=== PATIENT | male | born 1985 | race Caucasian/White ===

== ENCOUNTER 2020-05-04 01:07 | Emergency (ER) | payer OTHER ==
[2020-05-04 01:21] VITALS: RESP 18
[2020-05-04] MEDS ORDERED: KETOROLAC 15 MG/ML 1 ML VIAL IM STA (01:25)
[2020-05-04] MEDS ORDERED: HYDROcodone/APAP 5-325MG 1 EACH TAB PO STA (01:25)
--- NOTE | 2020-05-04 01:45 | ED ---
Fall HPI - General Chief Complaint: Fall Stated Complaint: Left leg injury Time Seen by Provider: 05/04/20 01:11 Source: patient Mode of arrival: ambulatory - History of Present Illness Initial Comments: 34-year-old male patient presents to the emergency department today for evaluation of left ankle injury. Patient states that he was on a steep hill and going down when he hit a rock with his foot causing him to twist the ankle. Patient states that he had onset of immediate pain. He was able to get off the hill but was unable to ambulate after that. Patient states the area has become quite swollen. He does admit to drinking a couple beers this evening. He denies falling, hitting his head, losing consciousness. He denies any other injuries. He has not taken any medication for his pain. Patient does admits to previous surgery to this ankle, states he had a ligament or tendon repair done near the Achilles region. Patient denies any headache, neck pain, back pain, chest pain, shortness of breath, dizziness, weakness, abdominal pain, nausea, vomiting, or difficulties with bowel movements or urination. - Related Data Previous Rx's Medication Instructions Recorded Hydrocodone/Acetaminophen [[place] 1 tab PO Q6HR PRN #12 tab 05/04/20 5-325] Ibuprofen [Motrin] 600 mg PO Q8HR PRN #30 tab 05/04/20 Allergies Allergy/AdvReac Type Severity Reaction Status Date / Time sulfadoxine Allergy Rash/Hives Verified 05/04/20 01:25 Review of Systems ROS Statement: Those systems with pertinent positive or pertinent negative responses have been documented in the HPI. ROS Other: All systems not noted in ROS Statement are negative. Past Medical History Additional Past Medical History / Comment(s): Lacerated liver Smoking Status: Current every day smoker Past Alcohol Use History: Occasional Past Drug Use History: Marijuana General Exam General appearance: alert, in no apparent distress, other (This is a well- developed, well-nourished adult male patient in no acute distress. Vital signs upon presentation are temperature 98.7F, pulse 125, respirations 18, blood pressure 148/101, pulse ox 97% on room air.) Neck exam: Present: normal inspection, full ROM, other (Nontender, no step-off, no deformity to firm midline palpation of the posterior cervical spine. Full range of motion without pain or limitation.). Absent: tenderness, meningismus, lymphadenopathy Respiratory exam: Present: normal lung sounds bilaterally. Absent: respiratory distress, wheezes, rales, rhonchi, stridor Cardiovascular Exam: Present: regular rate, normal rhythm, normal heart sounds. Absent: systolic murmur, diastolic murmur, rubs, gallop, clicks GI/Abdominal exam: Present: soft, normal bowel sounds. Absent: distended, tenderness, guarding, rebound, rigid Extremities exam: Present: tenderness (Surrounding the entirety of the left ankle), normal capillary refill, other (There is soft tissue swelling and ecchymosis surrounding the left ankle. There is possible deformity noted to the medial distal fibula region. Skin is otherwise pink, warm, dry. Cap refills less than 3 seconds. Pedal and posttibial pulses are 2+ and equal bilaterally. ). Absent: normal inspection, full ROM (Decreased range of motion due to increased pain with movement), pedal edema, joint swelling, calf tenderness Back exam: Present: normal inspection, other (Nontender, no step-off, no deformity to firm midline palpation of the thoracic and lumbar vertebrae. Full range of motion without pain or limitation.). Absent: vertebral tenderness Neurological exam: Present: alert, oriented X3, CN II-XII intact Psychiatric exam: Present: normal affect, normal mood Skin exam: Present: warm, dry, intact, normal color. Absent: rash Course Vital Signs 05/04/20 01:12 Temperature 98.7 F Pulse Rate 125 H Respiratory 18 Rate Blood Pressure 148/101 O2 Sat by Pulse 97 Oximetry Procedures - Orthopedic Splinting/Casting Injury #1 Side: left Lower Extremity Injury Location: short leg Lower Extremity Immobilizer: stirrup splint, Hector wrap Additional Comments: Leg padded with web roll. Neurovascular status intact after splint application. Skin to the foot is pink, warm, dry. Cap refills less than 3 seconds. Patient denies numbness or tingling. Medical Decision Making - Medical Decision Making 34-year-old male patient presents to the emergency department today for evaluation of left ankle injury. Physical examination did reveal soft tissue swelling and ecchymosis over the left ankle. X-rays were obtained and did reveal distal fibula fracture. Patient was placed in a stirrup splint. He is instructed to leave splint in place and to maintain nonweightbearing status. He'll be discharged to follow-up with orthopedics for further evaluation 1-2 days. He is educated regarding rest, ice, elevation. Patient and verbalized understanding and agree with this plan. - Radiology Data Radiology results: report reviewed, image reviewed 3 views of the left ankle are obtained. Report was reviewed in its entirety. Impression by Dr. Vilchis shows acute fracture of the distal fibula. Soft tissue swelling. No significant displacement. Disposition Clinical Impression: Left fibular fracture Disposition: HOME SELF-CARE Condition: Good Instructions (If sedation given, give patient instructions): Leg Fracture (ED), Splint Care (ED) Additional Instructions: Keep splint clean and dry. Apply ice to the leg 4-5 times daily. Rest and elevate the leg. Do not bear weight on the leg until cleared by orthopedics. Take medications as directed for pain control. Follow-up with instructional services specialist for further evaluation as soon as possible. Follow up with her primary care physician for recheck in 1-2 days. Return to the emergency department immediately for any new, worsening, or concerning symptoms. Prescriptions: Ibuprofen [Motrin] 600 mg PO Q8HR PRN #30 tab PRN Reason: Pain Hydrocodone/Acetaminophen [[place] 5-325] 1 tab PO Q6HR PRN #12 tab PRN Reason: Pain Is patient prescribed a controlled substance at d/c from ED?: No Referrals: Parth Gilmore MD [Primary Care Provider] - 1-2 days Alison Baca DO [Doctor of Osteopathic Medicine] - 1-2 days Time of Disposition: 02:31
--- NOTE | 2020-05-04 02:09 | XR ---
EXAMINATION TYPE: XR ankle complete LT DATE OF EXAM: 05/04/2020 COMPARISON: NONE HISTORY: Fall. Injury. Pain. TECHNIQUE: 3 views FINDINGS: There is nondisplaced oblique fracture of the distal shaft of the fibula. There is separati on up to 4 mm of the fragments. Ankle mortise is anatomic. There is soft tissue swelling around the a nkle joint. There is small Achilles calcaneal spur. IMPRESSION: Acute fracture of the distal fibula. Soft tissue swelling. No significant displacement.
[2020-05-04] MEDS ORDERED: MORPHINE SULFATE 2 MG/ML SYRINGE IM STA (02:15)
[2020-05-04] MEDS ORDERED: ACET/COD 300 MG/30 MG STARTER PACK 6 TAB BTL PO STA (02:31)
[2020-05-04 02:44] VITALS: BP 136/101; PULSE 114; TEMP 98.1
== END 2020-05-04 02:42 | disposition home or self-care (01) ==
LOC: EC 01:07
DX: S82.832A Other fracture of upper and lower end of left fibula, initial encounter for closed fracture (principal); F17.200 Nicotine dependence, unspecified, uncomplicated; Z88.2 Allergy status to sulfonamides; W01.0XXA Fall on same level from slipping, tripping and stumbling without subsequent striking against object, initial encounter; Y93.02 Activity, running; Y92.89 Other specified places as the place of occurrence of the external cause
CPT/HCPCS: 73610; 29515; 96372 ×2; 99284; J2270; J1885

== ENCOUNTER 2020-05-05 12:06 | Emergency (ER) | payer OTHER ==
[2020-05-05 12:26] VITALS: RESP 18
[2020-05-05] MEDS ORDERED: ONDANSETRON ODT 4 MG TAB PO STA (13:15)
--- NOTE | 2020-05-05 13:37 | ED ---
Recheck HPI - General Chief Complaint: Recheck/Abnormal Lab/Rx Stated Complaint: foot injury Time Seen by Provider: 05/05/20 13:04 Source: patient Mode of arrival: wheelchair Limitations: no limitations - History of Present Illness Initial Comments: Patient is a 34-year-old male presenting to emergency Department for recheck of his left ankle injury from yesterday. Patient was diagnosed with a left distal fibula fracture yesterday the ER after falling. Patient was placed in a splint. Patient states yesterday after he was discharged from the ER he was trying to hop into his house when he tripped and ended up putting a lot of his weight onto that left foot. Patient states after that he was able to get himself into the house. He has been doing some elevation and icing to his lower leg but states that he felt like his toes were colder than his right foot, but he also did not have a sock on his left foot. Patient states he is also feeling nauseous. He feels like the splint might be too tight. He is not having a significant increase in pain. He denies any other injuries from the second fall. He has no further complaints at this time. - Related Data Previous Rx's Medication Instructions Recorded Hydrocodone/Acetaminophen [[place] 1 tab PO Q6HR PRN #12 tab 05/04/20 5-325] Ibuprofen [Motrin] 600 mg PO Q8HR PRN #30 tab 05/04/20 Allergies Allergy/AdvReac Type Severity Reaction Status Date / Time sulfadoxine Allergy Rash/Hives Verified 05/05/20 12:26 Review of Systems ROS Statement: Those systems with pertinent positive or pertinent negative responses have been documented in the HPI. ROS Other: All systems not noted in ROS Statement are negative. Past Medical History Past Medical History: No Reported History Additional Past Medical History / Comment(s): Lacerated liver History of Any Multi-Drug Resistant Organisms: None Reported Past Surgical History: Hernia Repair Past Psychological History: No Psychological Hx Reported Smoking Status: Current every day smoker Past Alcohol Use History: Occasional Past Drug Use History: Marijuana General Exam - General Exam Comments Initial Comments: GENERAL: Patient is well-developed and well-nourished. Patient is nontoxic and in no acute distress. HEAD: Atraumatic, normocephalic. EYES: Pupils equal round and reactive to light, extraocular movements intact, sclera anicteric, conjunctiva are normal. Eyelids were unremarkable. ENT: TMs normal, nares patent, oropharynx clear without exudates. Moist mucous membranes. NECK: Normal range of motion, supple without lymphadenopathy or JVD. LUNGS: Unlabored respirations. Breath sounds clear to auscultation bilaterally and equal. No wheezes rales or rhonchi. HEART: Regular rate and rhythm without murmurs, rubs or gallops. ABDOMEN: Soft, nontender, normoactive bowel sounds. No guarding, no rebound. No masses appreciated. : Deferred MUSCULOSKELETAL: Patient's left lower leg is in a stirrup splint, he is neurovascular intact. He is able to wiggle his toes. His pain is not out of proportion. Patient does have mild swelling of his left lower ankle and left foot. There is no discoloration. No clubbing or cyanosis. NEUROLOGICAL: Patient is alert and oriented x 3. Motor and sensory are also intact. Symmet rical smile. Normal speech. PSYCH: Normal mood, normal affect. SKIN: Warm, Dry, normal turgor, no rashes or lesions noted. Limitations: no limitations Course Vital Signs 05/05/20 12:23 Temperature 98.2 F Pulse Rate 98 Respiratory 18 Rate Blood Pressure 137/82 O2 Sat by Pulse 100 Oximetry Medical Decision Making - Medical Decision Making Patient is a 34-year-old male here for recheck of his left distal fibular fracture from yesterday. He did end up tripping and putting his weight on after he was discharged here. He is also complaining of nausea. Repeat x-rays today show no significant changes in the fracture. Patient's splint was loosened, and rewrapped in place. He states his pain has remained mild, similar to yesterday. His pain is not a proportion, his pulses are normal, his compartments are soft and compressible. I do not have concern for compartment syndrome at this time. Patient is stable for discharge. He states he does have a referral to orthopedics and we'll check in with next week. He'll continue to alternating Tylenol Motrin for discomfort. He is in agreement with this plan of care. He does have crutches with him at this time. Return parameters were discussed with the patient he verbalizes understanding. Case discussed with Dr. Keane. Disposition Clinical Impression: Left fibular fracture, Nausea Disposition: HOME SELF-CARE Condition: Stable Instructions (If sedation given, give patient instructions): Ankle Fracture (ED) Additional Instructions: Please return to the Emergency Department if symptoms worsen or any other concerns. Continue with icing the left ankle, elevation, alternate between Tylenol and Motrin for discomfort. Do not apply weight on this left foot, use crutches. Follow-up with orthopedics as discussed. Is patient prescribed a controlled substance at d/c from ED?: No Referrals: Parth Gilmore MD [Primary Care Provider] - 1-2 days
--- NOTE | 2020-05-05 14:08 | XR ---
EXAMINATION TYPE: XR ankle complete LT DATE OF EXAM: 05/05/2020 CLINICAL HISTORY: Repeat fall, fibular fracture TECHNIQUE: Frontal, lateral and oblique images of the left ankle are obtained. COMPARISON: 05/04/2020 ankle radiograph FINDINGS: Overlying casting material obscures fine osseous detail. There is a redemonstrated distal fibular diaphysis mildly displaced spiral fracture with no significant angulation. No evidence of new fracture or dislocation. IMPRESSION: Unchanged appearance of mildly displaced oblique fracture of the distal fibular diaphysis versus 05/04/2020.
[2020-05-05 14:58] VITALS: BP 132/91; PULSE 88; TEMP 97.7
== END 2020-05-05 14:58 | disposition home or self-care (01) ==
LOC: EC 12:06
DX: S82.442D Displaced spiral fracture of shaft of left fibula, subsequent encounter for closed fracture with routine healing (principal); R11.0 Nausea; F17.200 Nicotine dependence, unspecified, uncomplicated; Z88.2 Allergy status to sulfonamides; X50.0XXD Overexertion from strenuous movement or load, subsequent encounter
CPT/HCPCS: 99283

== ENCOUNTER → 2020-05-07 | Outpatient (CLI) | payer OTHER ==
[2020-05-07 17:30] LABS: HCT 45.5 % (39.0-53.0); HGB 14.7 gm/dL (13.0-17.5); MCH 31.5 pg (25.0-35.0); MCHC 32.4 g/dL (31.0-37.0); MCV 97.3 fL (80.0-100.0); Mean Platelet Volume 8.3; Platelet Count 274 k/uL (150-450); RBC 4.67 m/uL (4.30-5.90); RDW 13.2 % (11.5-15.5); WBC 9.8 k/uL (3.8-10.6)
[2020-05-07 17:52] LABS: Appearance,Urine Clear (Clear); Bilirubin,Urine Negative (Negative); Blood,Urine Negative (Negative); Color,Urine Yellow; Glucose,Urine (UA) Negative (Negative); Ketones,Urine Negative (Negative); Leukocyte Esterase,Urine Negative (Negative); Nitrite,Urine Negative (Negative); PH, Urine 6.5 (5.0-8.0); Protein,Urine Negative (Negative); Specific Gravity,Urine 1.022 (1.001-1.035)
[2020-05-08 01:54] LABS: African American GFR (CKD) 128.7 (60.0-200.0); Albumin 4.3 g/dL (3.80-4.90); Albumin/Globulin Ratio 2.05 (1.60-3.17); Anion Gap 7.4 mmol/L (4.00-12.00); BUN/Creat Ratio 11.11 Ratio (12.00-20.00); Calcium 9.4 mg/dL (8.7-10.3); Carbon Dioxide 28.6 mmol/L (21.6-31.8); Globulin 2.1 g/dL (1.6-3.3); Potassium 4.2 mmol/L (3.5-5.5); Total Bilirubin 0.4 mg/dL (0.3-1.2); Total Protein 6.4 g/dL (6.2-8.2)
[2020-05-08 05:56] LABS: INR <0.90 (0.90-1.11); Partial Thromboplastin Time 26.3 sec (24.7-29.9); Prothrombin Time <9.9 sec (9.9-11.9)
--- NOTE | 2020-05-08 08:25 | XR ---
EXAMINATION TYPE: XR chest 2V DATE OF EXAM: 05/07/2020 COMPARISON: NONE TECHNIQUE: PA and lateral views submitted. HISTORY: Presurgical FINDINGS: There is a subsegmental density at the right lung base. Mild hyperinflation. No overt failure. Right- sided pleural effusion or thickening noted. No overt failure. IMPRESSION: 1. Blunting of the right costophrenic angle with area of subsegmental consolidation at the right lung base. Recommend CT of the chest. Findings could represent an area of consolidation was dural thicken ing or small effusion. Nodularity not excluded.
== END | disposition home or self-care (01) ==
LOC: LABMAIN 16:50
PROVIDERS: ATTEND Orthopaedic Surgery Orthopaedic Surgery of the Spine
DX: Z01.818 Encounter for other preprocedural examination (principal); S82.892A Other fracture of left lower leg, initial encounter for closed fracture; R91.8 Other nonspecific abnormal finding of lung field
CPT/HCPCS: 36415; 71046; 80053; 81003; 85027; 85610; 85730; 93005

== ENCOUNTER 2020-05-08 09:38 | Day surgery (SDC) | payer SELFPAY ==
[~2020-05-08 09:38] MED LIST: ceFAZolin 1,000 MG in SODIUM CHLORIDE 0.9% IRRIGATIO 1,000 ML IRRIGATION ONE
[2020-05-08] MEDS ORDERED: ONDANSETRON 4 MG/2 ML VIAL ONE (10:23)
[2020-05-08] MEDS ORDERED: LACTATED RINGERS 1,000 ML IV ONE (10:28)
[2020-05-08] MEDS ORDERED: LIDOCAINE 1% (10MG/ML) FOR IV START INTRADERMA ONE (10:29)
[2020-05-08] MEDS ORDERED: fentaNYL (PF) 50 MCG/ML 2 ML AMP IV ONE (10:32)
[2020-05-08] MEDS ORDERED: MIDAZOLAM 2 MG/2 ML VIAL IV ONE (10:32)
[2020-05-08] MEDS ORDERED: ONDANSETRON 4 MG/2 ML VIAL IVP ONE (10:42)
[2020-05-08] MEDS ORDERED: DEXAMETHASONE SOD PHOSPHATE 10 MG/ML 1 ML VIAL IV ONE (11:05)
--- NOTE | 2020-05-08 11:11 | P.ANPRN ---
Procedure Note - Anesthesia - Nerve Block Performed Left Adductor Canal Single Time Out Performed: Yes Date of Procedure: 05/08/20 Procedure Start Time: 10:32 Procedure Stop Time: 10:36 Location of Patient: PreOp Indication: Acute Post-Operative Pain, Requested by Surgeon Sedation Type: Sedate with meaningful contact maintained Preparation: Sterile Prep Position: Supine Needle Types: Pajunk Needle Gauge: 20 Ultrasound used to visualize needle placement: Yes Ultrasound used to observe medication spread: Yes Injectate: Other (see comment) (lidocaine 1% with epi 1/100 5 ml , decadron 5 mg) Blood Aspirated: No Pain Paresthesia on Injection Noted: No Resistance on Injection: Normal Image Stored and Saved: Yes Events: Uneventful and Well Tolerated
--- NOTE | 2020-05-08 11:13 | P.ANPRN ---
Procedure Note - Anesthesia - Nerve Block Performed Left Popliteal Single Time Out Performed: Yes Date of Procedure: 05/08/20 Procedure Start Time: 10:36 Procedure Stop Time: 10:40 Location of Patient: PreOp Indication: Acute Post-Operative Pain, Requested by Surgeon Sedation Type: Sedate with meaningful contact maintained Preparation: Sterile Prep Position: Supine Needle Types: Pajunk Needle Gauge: 20 Ultrasound used to visualize needle placement: Yes Ultrasound used to observe medication spread: Yes Injectate: Other (see comment) (lidocaine 1% with epi 1/[id number] 15 ml, decadron 5 mg) Blood Aspirated: No Pain Paresthesia on Injection Noted: No Resistance on Injection: Normal Image Stored and Saved: Yes Events: Uneventful and Well Tolerated
[2020-05-08] MEDS ORDERED: LIDOCAINE 1% INJ 10MG/ML (20 ML MDV) ONE (11:22)
[2020-05-08] MEDS ORDERED: PROPOFOL 10 MG/ML 20 ML VIAL IV ONE (11:22)
[2020-05-08] MEDS ORDERED: fentaNYL (PF) 50 MCG/ML 2 ML AMP ONE (11:22)
[2020-05-08] MEDS ORDERED: LIDOCAINE 2%-EPI 1:100,000 20 ML VIAL ONE (11:22)
[2020-05-08] MEDS ORDERED: DEXAMETHASONE SOD PHOSPHATE 4 MG/ML 1 ML VIAL ONE (11:22)
[2020-05-08] MEDS ORDERED: ROPIVACAINE 5 MG/ML 30 ML VIAL ONE (11:22)
[2020-05-08] MEDS ORDERED: MIDAZOLAM 2 MG/2 ML VIAL ONE (11:22)
[2020-05-08] MEDS ORDERED: BENZOCAINE/MENTHOL LOZENG 1 EACH LOZENGE MUCOUS MEM PRN (12:37)
[2020-05-08] MEDS ORDERED: HYDROmorphone 0.5 MG/0.5 ML SYRINGE IVP PRN (12:37)
[2020-05-08] MEDS ORDERED: HYDROmorphone 1 MG/ML 1 ML SYRINGE IVP PRN (12:37)
[2020-05-08] MEDS ORDERED: HYDROcodone/APAP 5-325MG 1 EACH TAB PO PRN ×2 (12:38)
[2020-05-08] MEDS ORDERED: ONDANSETRON 4 MG/2 ML VIAL IVP PRN (12:38)
[2020-05-08] MEDS ORDERED: SODIUM CHLORIDE 0.9% 1,000 ML IV SCH (12:45)
--- NOTE | 2020-05-08 12:48 | XR ---
EXAMINATION TYPE: XR ankle limited LT DATE OF EXAM: 05/08/2020 COMPARISON: NONE HISTORY: Postop TECHNIQUE: 2 intraoperative views submitted FINDINGS: Postsurgical changes appear to be in near-anatomic alignment. IMPRESSION: Postoperative change
--- NOTE | 2020-05-08 12:49 | FL ---
EXAMINATION TYPE: FL guidance operating room DATE OF EXAM: 05/08/2020 HISTORY: Fluoroscopy time 12 seconds of fluoroscopy provided. IMPRESSION: 1. Fluoroscopy time.
[2020-05-08 13:07] VITALS: TEMP 97.8
[2020-05-08 13:17] VITALS: RESP 16
--- NOTE | 2020-05-08 13:23 | P.OP ---
Date of Procedure: 05/08/20 Preoperative Diagnosis: Left distal fibula fracture, acute Traumatic status post fall Postoperative Diagnosis: Same plus findings of syndesmosis disruption at the distal fibular tibial joint, acute Traumatic status post fall Anesthesia: MAC Pathology: none sent Condition: stable Disposition: PACU Description of Procedure: BRIEF OPERATIVE NOTE Preoperative Diagnosis: Right distal fibula fracture, comminuted and displaced, acute traumatic status post fall Postoperative Diagnosis: Same With findings of disrupted syndesmosis At the distal talofibular joint Procedure: Open reduction internal fixation of right distal fibula fracture Open reduction internal fixation of syndesmosis Use of fluoroscopic guidance Surgeon: Dr. Baca Journeyman Glazier: Can Perez is present throughout the entire the case persistence during positioning, dissection, exposure, visualization, and all crucial elements of the case as well as closure. Anesthesia: General anesthesia Estimated blood loss: Less than 50 mL Tourniquet time: Approximately 40 minutes Specimen: None Complications: None apparent Components implanted: Synthes small frag one third semitubular plate with 7 screws with A combination of 3.5 cortical and 4.0 cancellus screws Disposition: To recovery room in good stable condition. OPERATIVE INDICATIONS The patient had an acute injury A couple of days ago when When he fell while running [place] a [place]ite. he had immediate pain and swelling in His leftankle. he had not had any pain or issues prior to her fall. he was evaluated and found have a comminuted distal fibula fracture with accompanying medial sided pain. There is no evidence of fracture at the medial malleolus Fracturebut there was evidence of deltoid ligament injury. With the comminution and the medial and lateral pain involved I felt that her best chance of healing would be to pursue open reduction internal fixation of distal fibula. I discussed the risk of occ asions alternatives and benefits of surgery in relation to His injury. I discussed the risk of bleeding risk and infection risk and need for further surgery risk of decreased loss of motion loss function malunion nonunion hardware failure nerve damage as well as, occasions with surgery were explained. I answered her questions best my ability and she elected proceed with surgical intervention. OPERATIVE SUMMARY After discussing all the risks, patient alternatives and benefits at length, the patient elected to proceed with surgical intervention, signed informed consent, and presented for their procedure. The patient was seen and examined in the preoperative holding area and the surgical site was marked. The patient was given antibiotics and brought to the operating room. The patient was sedated and intubated by anesthesia in standard fashion. The patient was positioned on to the operating room table in a supine position with a pad under her right hip. We were careful to pad any bony prominences and pressure points. We were careful to maintain the patient's cervical spine and good neutral alignment and position throughout. We used C-arm machines to establish union fluoroscopic guidance in AP and lateral positions. We were able to localize the fractures appropriatelyAt the left ankle. The patient was prepped and draped in a normal standard fashion. An appropriate timeout and keystone protocol performed. We were able to proceed with the surgery. The local wound area was infiltrated with local anesthetic. An incision was made over the lateral aspect of the Leftankle and I dissected down to the distal fibula appropriately. The fracture was obvious and I was able to mobilize some of the fragments and elevated some of the periosteum leaving as much is intact as possible. I performed a gentle reduction techniques in order to get the fractures well aligned and use of bone clamp to get good provisional fixation. I was able to get good near-anatomic position. This was confirmed with C-arm guidance. I was then able to measure and position a one third semitubular 7 hole plate and contoured appropriately over the distal fibula and over the fracture site proximally and distally. I establish an interfragmentary screw going from anterior to posterior across fracture site and good alignment and position with good bony fixation. As able to remove the bone clamp in place the plate laterally and placed cortical screws proximally and cancellous screws distally to get excellent fixation at a near anatomic position. This was confirmed with C-arm guidance. I performed medial and lateral varus and valgus stress at the ankle after fixation was performed and there Was evidence of Some widening and displacement of the syndesmosis and the ankle mortise. I felt that we needed to stabilize the syndesmosis. I was able place screws across the fibula and into the distal tibia while holding the syndesmosis stable with a [id number] distal clamp. I used the distal hole of the plate and one extra screw distal to the plate for fixation across the syndesmosis. Further images were taken which showed good stability at the syndesmosis. We were able to proceed with closure. Deep layers were closed with 2-0 Vicryl subcu tissues closed 2-0 Vicryl and skin was closed with 4-0 nylon. The wound was cleaned and dried and dressed with the appropriate dressing. I placed a sugar tong and posterior mold well-padded well molded Bulky [place] splint at theLeftlower leg. The drapes were broken down. The patient was gently rolled back onto their hospital bed being careful to maintain their cervical spine and good neutral alignment and position. They were woken up by anesthesia, extubated, and brought to the recovery room in good stable condition. The patient will be able to be discharged from the hospital after appropriate observation due to and for appropriate postoperative care, medical management and monitoring. We will continue to follow them closely about the postoperative course. a plan see Him back in the office in approximately 1 week's time or sooner if he is having problems. Plan - Discharge Summary New Discharge Prescriptions: New HYDROcodone/APAP 7.5-325MG [[place] 7.5-325] 1 tab PO Q4H PRN 3 Days #18 tab PRN Reason: Pain No Action Ibuprofen [Motrin] 600 mg PO Q8HR PRN #30 tab PRN Reason: Pain Hydrocodone/Acetaminophen [[place] 5-325] 1 tab PO Q6HR PRN #12 tab PRN Reason: Pain Discharge Medication List Hydrocodone/Acetaminophen [[place] 5-325] 1 tab PO Q6HR PRN #12 tab 05/04/20 [Rx] Ibuprofen [Motrin] 600 mg PO Q8HR PRN #30 tab 05/04/20 [Rx] HYDROcodone/APAP 7.5-325MG [[place] 7.5-325] 1 tab PO Q4H PRN 3 Days #18 tab 05/08/20 [Rx] Follow up Appointment(s)/Referral(s): Alison Baca DO [Doctor of Osteopathic Medicine] - 1 Week
[2020-05-08 13:57] VITALS: BP 134/91; PULSE 91
[2020-05-09] MEDS ORDERED: SENNOSIDES-DOCUSATE SODIUM 1 EACH TAB PO SCH (09:00)
== END 2020-05-08 14:14 | disposition home or self-care (01) ==
LOC: OR 09:38
PROVIDERS: ATTEND Orthopaedic Surgery Orthopaedic Surgery of the Spine
DX: S82.452A Displaced comminuted fracture of shaft of left fibula, initial encounter for closed fracture (principal); S93.432A Sprain of tibiofibular ligament of left ankle, initial encounter; S93.422A Sprain of deltoid ligament of left ankle, initial encounter; F17.200 Nicotine dependence, unspecified, uncomplicated; Z79.891 Long term (current) use of opiate analgesic; Z79.1 Long term (current) use of non-steroidal anti-inflammatories (NSAID); Z88.2 Allergy status to sulfonamides; Z98.890 Other specified postprocedural states; Z87.828 Personal history of other (healed) physical injury and trauma; Z87.19 Personal history of other diseases of the digestive system; W17.81XA Fall down embankment (hill), initial encounter; Y93.83 Activity, rough housing and horseplay; Y93.02 Activity, running; Y92.833 Campsite as the place of occurrence of the external cause
CPT/HCPCS: 27784; 27829; 64447; 64450; 76942; 73600; C1713; J2250; J1100 ×2; J0690 ×2; J2405; J2001; J3010; J2795; J2704

== ENCOUNTER → 2020-05-21 | Outpatient (CLI) | payer OTHER ==
--- NOTE | 2020-05-21 15:36 | US ---
EXAMINATION TYPE: US venous doppler duplex LE LT DATE OF EXAM: 05/21/2020 3:22 PM COMPARISON: NONE CLINICAL HISTORY: I80.9 PHLEBITIS AND THROMBOPHLEBITIS. Left leg swelling and pain SIDE PERFORMED: Left TECHNIQUE: The lower extremity deep venous system is examined utilizing real time linear array sonog carmelo with graded compression, doppler sonography and color-flow sonography. VESSELS IMAGED: External Iliac Vein (EIV) Common Femoral Vein Deep Femoral Vein Greater Saphenous Vein * Femoral Vein Popliteal Vein Small Saphenous Vein * Proximal Calf Veins (* superficial vessels) Left Leg: Positive for DVT within left popliteal vein and proximal calf veins. Noncompressible venou s structures Color-flow are present. Results called to Da[facility] at [facility] at time of exam IMPRESSION: 1. Deep venous thrombosis present within the left popliteal vein extending into the proximal calf vei ns
== END | disposition home or self-care (01) ==
LOC: RADUSWWP 14:56
PROVIDERS: ATTEND Orthopaedic Surgery Orthopaedic Surgery of the Spine
DX: I82.432 Acute embolism and thrombosis of left popliteal vein (principal)

== ENCOUNTER 2020-06-13 19:15 | Emergency (ER) | payer OTHER ==
[2020-06-13] MEDS ORDERED: MORPHINE SULFATE 4 MG/ML SYRINGE IVP STA (19:48)
[2020-06-13] MEDS ORDERED: MORPHINE SULFATE 4 MG/ML SYRINGE IM STA (19:54)
--- NOTE | 2020-06-13 20:01 | ED ---
Extremity Problem HPI - General Chief complaint: Extremity Problem,Nontraumatic Stated complaint: Poss LT leg blood clot Time Seen by Provider: 06/13/20 19:29 Source: patient Mode of arrival: ambulatory Limitations: no limitations - History of Present Illness Initial comments: 34-year-old male patient presents to the emergency department today for evalua tion of left lower extremity swelling, pain, and discoloration. Patient states that he had ORIF of the left ankle in April. States a few days afterward he developed blood clot to the left leg. States that he was started on Eliquis. States that his symptoms had completely resolved so his physician decreased his Eliquis dosing to 5 mg daily. Patient states that today he feels a charley hors e type pain in the left calf, his leg is more swollen, and he has discoloration. He denies any fever or chills. Denies any chest pain or palpitations. Denies any shortness of breath. Patient denies any recent rash, cough, abdominal pain, nausea, vomiting, diarrhea, constipation, back pain, numbness, tingling, dizziness, weakness, hematuria, dysuria, urinary urgency, urinary frequency, headache, visual changes, or any other complaints. - Related Data Previous Rx's Medication Instructions Recorded Hydrocodone/Acetaminophen [[place] 1 tab PO Q6HR PRN #12 tab 05/04/20 5-325] Ibuprofen [Motrin] 600 mg PO Q8HR PRN #30 tab 05/04/20 HYDROcodone/APAP 7.5-325MG [[place] 1 tab PO Q4H PRN 3 Days #18 tab 05/08/20 7.5-325] Allergies Allergy/AdvReac Type Severity Reaction Status Date / Time sulfadoxine Allergy Rash/Hives Verified 06/13/20 19:21 Review of Systems ROS Statement: Those systems with pertinent positive or pertinent negative responses have been documented in the HPI. ROS Other: All systems not noted in ROS Statement are negative. Past Medical History Past Medical History: Deep Vein Thrombosis (DVT) Additional Past Medical History / Comment(s): Lacerated liver History of Any Multi-Drug Resistant Organisms: None Reported Past Surgical History: Hernia Repair, Orthopedic Surgery Additional Past Surgical History / Comment(s): orif to lt ankle Past Psychological History: No Psychological Hx Reported Smoking Status: Current every day smoker Past Alcohol Use History: Occasional Past Drug Use History: Marijuana General Exam Limitations: no limitations General appearance: alert, in no apparent distress, other (This is a well- developed, well-nourished adult male patient in no acute distress. Vital signs upon presentation are temperature 98.0F, pulse 117, respirations 20, blood pressure 123/86, pulse ox 95% on room air.) Eye exam: Present: normal appearance, PERRL, EOMI. Absent: scleral icterus, conjunctival injection, periorbital swelling ENT exam: Present: normal exam, normal oropharynx, mucous membranes moist Respiratory exam: Present: normal lung sounds bilaterally. Absent: respiratory distress, wheezes, rales, rhonchi, stridor Cardiovascular Exam: Present: normal rhythm, tachycardia, normal heart sounds. Absent: systolic murmur, diastolic murmur, rubs, gallop, clicks Extremities exam: Present: full ROM, normal capillary refill, calf tenderness (Left), other (There is generalized swelling to the left lower extremity, there is slight purplish discoloration to the skin, pedal and posttibial pulses are 2+ and equal bilaterally. There is a healing incision to the left lateral ankle. No surrounding erythema or drainage). Absent: normal inspection, tenderness, pedal edema, joint swelling Neurological exam: Present: alert, oriented X3, CN II-XII intact Psychiatric exam: Present: normal affect, normal mood Skin exam: Present: warm, dry, intact, normal color. Absent: rash Course Vital Signs 06/13/20 06/13/20 06/13/20 19:17 20:06 21:38 Temperature 98.0 F 98 F Pulse Rate 117 H 87 94 Respiratory 20 16 16 Rate Blood Pressure 123/86 112/82 131/94 O2 Sat by Pulse 95 98 97 Oximetry Medical Decision Making - Medical Decision Making 34-year-old male patient presents to the emergency department today for evaluation of increased swelling, pain, and discoloration to the left lower leg. Patient did have DVT approximately one month ago was started on Eliquis. Patient states he recently decreased dose of Eliquis at the direction of his doctor 25 mg once a day. Physical examination did reveal generalized nonpitting edema to the left lower leg. There was slight purplish discoloration skin was warm, pulses intact. There is tenderness to the posterior calf. Ultrasound was obtained and showed chronic DVT with no evidence of new thrombus formation. Radiologist reports it appears similar to previous exam. We did discuss findings and results. Given increase in symptoms we will increase his dosage of Eliquis to 5 mg twice daily. He is instructed to follow up his primary care physician for recheck in 1-2 days. He is urged to discuss follow-up with vascular surgery. Return parameters were discussed in detail. He verbalizes understanding and agrees with this plan. - Radiology Data Radiology results: report reviewed, image reviewed Ultrasound of the left lower extremity was obtained. Report was reviewed in its entirety. Impression by Dr. Vilchis shows chronic deep vein thrombosis in the popliteal vein and calf veins unchanged compared to old exam. Femoral vein is patent. No sign of a new thrombus compared to old exam. Disposition Clinical Impression: Chronic deep vein thrombosis (DVT) of left lower extremity Disposition: HOME SELF-CARE Condition: Good Instructions (If sedation given, give patient instructions): Deep Vein Thrombosis (ED) Additional Instructions: Increase Eliquis to 5 mg twice daily. Follow-up with your primary care physician for recheck tomorrow. Return to the emergency department immediately for any new, worsening, or concerning symptoms. Is patient prescribed a controlled substance at d/c from ED?: No Referrals: Sukhwinder Gilmore MD [Primary Care Provider] - 1-2 days Time of Disposition: 21:25
[2020-06-13 20:06] VITALS: RESP 16
--- NOTE | 2020-06-13 20:43 | US ---
EXAMINATION TYPE: US venous doppler duplex LE LT DATE OF EXAM: 06/13/2020 8:25 PM COMPARISON: US 05/21/2020 CLINICAL HISTORY: Left lower leg pain/swelling/hx DVT. Left lower leg pain/swelling x 1 day. Hx of DV T. Patient on eliquis. SIDE PERFORMED: Left TECHNIQUE: The lower extremity deep venous system is examined utilizing real time linear array sonog carmelo with graded compression, doppler sonography and color-flow sonography. VESSELS IMAGED: External Iliac Vein (EIV) Common Femoral Vein Deep Femoral Vein Greater Saphenous Vein * Femoral Vein Popliteal Vein Small Saphenous Vein * Proximal Calf Veins (* superficial vessels) Left Leg: Internal echoes seen within the left popliteal vein. Vein does not appear to compress. Vei n shows little to no color flow. Prox calf veins not well seen. IMPRESSION: There is chronic deep vein thrombosis in the popliteal vein and calf veins unchanged com pared to old exam. Femoral vein is patent. No sign of a new thrombus compared to old exam.
[2020-06-13] MEDS ORDERED: ACET/COD 300 MG/30 MG STARTER PACK 6 TAB BTL PO STA (21:24)
[2020-06-13 21:40] VITALS: BP 131/94; PULSE 94; TEMP 98
== END 2020-06-13 21:40 | disposition home or self-care (01) ==
LOC: EC 19:15
DX: I82.532 Chronic embolism and thrombosis of left popliteal vein (principal); F17.200 Nicotine dependence, unspecified, uncomplicated; Z79.01 Long term (current) use of anticoagulants; Z88.2 Allergy status to sulfonamides
CPT/HCPCS: 93971; 99283; 96372; J2270